=== PATIENT | male | born 1970 | race Caucasian/White ===

== ENCOUNTER 2023-07-19 07:52 | Emergency (ER) | payer BC ==
[~2023-07-19] VITALS: Ht 180.3 cm; Wt 96.7 kg
[2023-07-19 07:56] VITALS: TEMP 98.7
[2023-07-19] MEDS ORDERED: AMOX-117 PO (08:57)
[2023-07-19] MEDS: amox tr/potassium clavulanate 875/125mg TAB PO ONE (09:00)
[2023-07-19 09:07] VITALS: BP 134/92; PULSE 68; RESP 18; O2SAT 98
== END 2023-07-19 09:10 | disposition home or self-care (01) ==
LOC: ER 07:53
DX: S01.511A Laceration without foreign body of lip, initial encounter (principal); K13.0 Diseases of lips; Z79.2 Long term (current) use of antibiotics; V89.2XXA Person injured in unspecified motor-vehicle accident, traffic, initial encounter; Y93.89 Activity, other specified; Y92.89 Other specified places as the place of occurrence of the external cause; Y99.8 Other external cause status
CPT/HCPCS: 99284